=== PATIENT | male | born 1960 | race African-American/Black ===

== ENCOUNTER 2017-12-17 08:28 | Day surgery (SDC) | payer BC, OTHER ==
[2017-12-16 11:30] VITALS: BMI 40.2
[~2017-12-17 08:28] MED LIST: BACITRACIN 50,000 UNITS VIAL TP ONE
[2017-12-17] MEDS ORDERED: oxyCODONE HCL 5 MG TABLET PO PRN ×2 (10:00)
[2017-12-17] MEDS ORDERED: LACTATED RINGERS SOLUTION 1,000 ML IV SCH (10:00)
[2017-12-17] MEDS ORDERED: ONDANSETRON 4 MG/2 ML VIAL IVPUSH PRN (10:00)
[2017-12-17] MEDS ORDERED: DEXAMETHASONE SOD PHOSPHATE 4 MG/1 ML VIAL ONE (10:26)
[2017-12-17] MEDS ORDERED: LIDOCAINE HCL 1%, 10 MG/ML (20ML VIAL) ONE (10:27)
[2017-12-17] MEDS ORDERED: BUPIVACAINE HCL/PF 0.5% (5MG/ML) 10 ML VIAL ONE (10:28)
[2017-12-17] MEDS ORDERED: LIDOCAINE HCL/PF 2% SDV 5ML VIAL ONE (10:37)
[2017-12-17] MEDS ORDERED: MIDAZOLAM HCL 2 MG/2 ML SINGLE DOSE VIAL ONE (10:47)
[2017-12-17] MEDS ORDERED: ceFAZolin SODIUM 1 GM VIAL ONE (10:53)
[2017-12-17] MEDS ORDERED: SODIUM CHLORIDE 0.9% P/F 10 ML VIAL IJ ONE (10:53)
[2017-12-17] MEDS ORDERED: ceFAZolin SODIUM 1 GM VIAL IVPB ONE (10:57)
[2017-12-17] MEDS ORDERED: BENZOIN/ALOE VERA/STORAX/TOLU 58 ML BOTTLE ONE (11:01)
[2017-12-17] MEDS ORDERED: LIDOCAINE HCL 1%, 10 MG/ML (20ML VIAL) INF ONE (11:02)
[2017-12-17] MEDS ORDERED: BUPIVACAINE HCL/PF 0.5% (5MG/ML) 10 ML VIAL IJ ONE (11:02)
[2017-12-17] MEDS ORDERED: PROPOFOL 20 ML ONE ×2 (12:06)
[2017-12-17 14:56] VITALS: TEMP 97.7
[2017-12-17 15:35] VITALS: BP 135/62; PULSE 60
--- NOTE | 2017-12-21 14:42 | PATH ---
Surgical Pathology Report Patient Name: REY FARRELL Med. Rec. #: [id number] /Age/Gender: 1960 (Age: 57) / M Account: [id number] Location: [facility] Taken: 12/17/2017 Received: 12/17/2017 Reported: 12/21/2017 Physicians: Hans Lobato DPM Specimen(s) Received A: RIGHT FOOT CARTILAGE AND BONE B: REMOVED SCREW RIGHT FOOT Clinical History Hallux valgus, hallux minimus Final Diagnosis A. FOOT, RIGHT, CARTILAGE AND BONE, BUNIECTOMY: CARTILAGE AND BONE WITH DEGENERATIVE CHANGES. B. HARDWARE, FOOT, RIGHT, REMOVAL: SURGICAL HARDWARE. MACROSCOPIC DIAGNOSIS. Electronically Signed Tammi Hutchins M.D. Gross Description A. Received in formalin labeled "bone and cartilage right foot," is a 5.3 x 4.5 x 0.8 cm aggregate of multiple weldon-yellow, irregular portions of bone. Research [employer] sections are submitted in one cassette, following decalcification. B. Received fresh labeled "removed hardware right foot," is a 1.9 cm in length phan metallic screw. No soft tissue is present. No sections are submitted, gross only. 12/18/201712/18/2017
--- NOTE | 2018-01-02 12:19 | OP ---
DATE OF OPERATION: 12/17/2017 SURGEON: Hans Lobato DPM JET HANDLER: Dr. Keara Ybarra PREOPERATIVE DIAGNOSIS: Right foot painful hallux rigidus deformity. Complication of internal orthopedic device POSTOPERATIVE DIAGNOSIS: Same PROCEDURE: Application of Reference Toe System implant to right 1st metatarsophalangeal joint. Screw removal right 1st met. ANESTHESIA: IV MAC sedation with local infiltrate. HEMOSTASIS: Right ankle tourniquet at 250 mmHg for 80 minutes. ESTIMATED BLOOD LOSS: Less than 5 mL. MATERIALS: Reference Toe System implant, size 4. Vicryl sutures 4-0 and 3-0 and Monocryl, 5-0 nylon suture. INJECTABLE: 1:1 mixture of 20 mL of 1% lidocaine plain and 0.5% Marcaine plain. CONDITION: Stable. DESCRIPTION OF OPERATION: The patient was brought to the operating room and was placed on the operating table in a supine position. Following anesthetic sedation, 20 mL of 1:1 mixture of 1% lidocaine plain and 0.5% Marcaine plain was administered to the right foot. The right foot was then scrubbed, prepped, and draped in the usual aseptic manner. Upon exsanguination of right foot with Esmarch bandages and placement of padding at the ankle, the pneumatic ankle tourniquet was inflated to 250 mmHg. The IV antibiotic, Ancef 4 mg, was given preoperatively. Attention was then directed to the dorsomedial aspect of the 1st metatarsal of the right foot where a linear incision was made at the dorsomedial aspect of the 1st metatarsophalangeal joint and was approximately 4 cm in length. The incision was deepened through the subcutaneous tissue using sharp and blunt dissection. Care was taken to identify and retract all vital neurovascular structures. All bleeders were cauterized as necessary. Next, a linear capsulotomy was performed at the dorsomedial aspect of the 1st metatarsophalangeal joint. The periosteal and capsular structures were then carefully dissected free of the osseous attachment and reflected medially and laterally, including the head of the 1st metatarsal at the operating table, opening and inspecting the quality of the right 1st metatarsal area. It was noted that there was significant medial and dorsal eminence and severe arthritic changes at the joint. Prominent medial bone shelf was also noted for significant arthritic changes noted at the 1st metatarsal head and also proximal phalanx of the hallux. Next, attention was then directed to the medial aspect of the 1st metatarsal head where utilizing sagittal saw, medial prominence was resected. At this time, the guide pin was driven into the central aspect of the 1st metatarsal shaft until calibration, marked was flush with the top of the stainless steel portion of the drill site. The resulting orientation of the guide pin noted to be at the mid-point of the metatarsal head and parallel to the cortical surface. Surgical site was irrigated using sterile normal saline. Attention at this time was directed to the midshaft of the metatatarsal. A 20mm lag OsteoMed screw was visualized and removed using a screwdriver and was sent to Pathology. At this time, using a sagittal saw, proximal one-third of proximal phalanx was removed. Utilizng the proximal phalanx guide, the proximal phalanx was reamed to appropriate depth. Appropriate implant sizing was performed using osseous implant sizing guide, making sure that the correct thickness, diameter, and general shape of the implant was observed. Trial implant was then utilized. A size 4 Reference Toe implant was the appropriate implant. Grommets were put in place at this time. The permanent implant was then put in place. Implant position was then visualized. Noted to be in excellent alignment. At this time, it was 1st MPJ range of motion improved by about an additional 25-30 degrees. The surgical site was then irrigated with a copious amount of normal saline. Capsule was closed using 3-0 Vicryl suture in a simple suture fashion. Next, subcutaneous was closed using 4-0 Vicryl in a running fashion. The skin was reapproximated using 5-0 sutures in subcuticular running fashion. The surgical site was then dressed with Adaptic 4 x 4 gauze and Kerlix. An Mino wrap was applied in a light compressive fashion. Pneumatic ankle tourniquet was then deflated and prompt hyperemic response was noted to all the digits of the right foot. The patient tolerated the above procedure and anesthesia well and left the operating room, to the recovery room in good condition with all vital signs stable and neurovascular status intact to the right foot. Capillary filling time was instantaneous to all 5 digits right foot. Attending was present during the entire time of surgery. WIN Chen/[id number] MTDD
== END 2017-12-17 15:44 | disposition home or self-care (01) ==
LOC: JASU-SURG 08:28
PROVIDERS: ATTEND Podiatrist Foot Surgery
PROC: 0SRN0JZ Replacement of Left Metatarsal-Phalangeal Joint with Synthetic Substitute, Open Approach (ICD-10-PCS; principal; 2017-12-17 10:00)
DX: M20.21 Hallux rigidus, right foot (principal); T84.84XA Pain due to internal orthopedic prosthetic devices, implants and grafts, initial encounter; Y79.3 Surgical instruments, materials and orthopedic devices (including sutures) associated with adverse incidents; Y92.9 Unspecified place or not applicable
CPT/HCPCS: 73630-TC-RT-FY; 88300-TC; 88304-TC; 88311-TC; 94760